=== PATIENT | female | born 1950 | race Hispanic/Latino ===

== ENCOUNTER 2017-12-14 06:04 | Day surgery (SDC) | payer MEDICARE ==
[~2017-12-14 06:04] MED LIST: SODIUM CHLORIDE 0.9% 1000ML 1,000 ML IV ONE
[2017-12-14 06:29] VITALS: BP 158/98
[2017-12-14] MEDS ORDERED: ATEN25TA PO (06:41)
[2017-12-14] MEDS ORDERED: PROPOFOL 10 MG/ML 20ML VIAL IV ONE (07:10)
[2017-12-14] MEDS ORDERED: SIMETHICONE 40 MG/0.6 ML ML ONE (07:23)
== END 2017-12-14 08:10 | disposition home or self-care (01) ==
LOC: ENDO 06:04 → DAH 06:04 → ENDO 08:10
PROVIDERS: ATTEND Internal Medicine
DX: D12.4 Benign neoplasm of descending colon (principal); K57.30 Diverticulosis of large intestine without perforation or abscess without bleeding; K64.0 First degree hemorrhoids; E78.5 Hyperlipidemia, unspecified; I10 Essential (primary) hypertension; F41.9 Anxiety disorder, unspecified; F32.9 Major depressive disorder, single episode, unspecified; M81.0 Age-related osteoporosis without current pathological fracture; Z98.890 Other specified postprocedural states; Z86.010 Personal history of colon polyps
CPT/HCPCS: 45380; 88305; A4606; J2704; J7030